=== PATIENT | male | born 1955 | race Caucasian/White ===

== ENCOUNTER 2019-12-10 07:55 | Day surgery (SDC) | payer MEDICARE ==
[2019-12-09 09:10] VITALS: BMI 29.2
--- NOTE | 2019-12-09 11:29 | HP ---
ADDENDUM: Alysha Aguilera is a 64-year-old male. The patient presents to the office today for his anal stenosis. He has had a long problem with constipation, having very small caliber stools. He is tired of taking the stool softeners and fiber, mineral oil, and tired of dealing with this problem. Plan is for exam under anesthesia, sphincterotomy, possible anoplasty. He is up to date on his colonoscopies. MEDICATIONS: 1. Aspirin. 2. Lisinopril. 3. Metformin. 4. Carvedilol. PAST MEDICAL HISTORY: Cervical spine fracture in June 2017; diverticulitis on October 07, 1984; coronary stents and pacemakers in december 2004; coronary artery bypass grafting in April 2007; pacemaker removal and new pacemaker in June 2015. The patient is followed by Dr. Feliciano Jefferson, who states the patient is stable for surgery. I talked to him last year. The patient denies any cardiac symptoms. Colonoscopy was performed by Dr. Rick Cardoso. PHYSICAL EXAMINATION: VITAL SIGNS: 130 pounds, 74 inches, 140/87, 69, . HEAD, EARS, EYES, NOSE, AND THROAT: Unremarkable. LUNGS: Clear to auscultation. ABDOMEN: Soft and nontender. RECTAL: Not repeated. ASSESSMENT: Anal stenosis. PLAN: Exam under anesthesia with possible sphincterotomy and anoplasty. Explained risks and benefits and he consented. Questions answered. Job ID: [id number]
[2019-12-10] MEDS ORDERED: Acetaminophen 500 MG TAB ONE (09:07)
[2019-12-10] MEDS ORDERED: Famotidine/PF 20 mg/2ml Vial ONE (09:12)
[2019-12-10] MEDS ORDERED: Fentanyl 100 MCG/2 ML VIAL ONE ×2 (09:12)
[2019-12-10] MEDS ORDERED: Sodium Chloride 0.9% 100 ML ONE (09:17)
[2019-12-10] MEDS ORDERED: Piperacillin/Tazobactam 3.375 GM VIAL ONE (09:17)
[2019-12-10] MEDS ORDERED: Ketorolac Tromethamine 30 MG/ML VIAL ONE (09:17)
[2019-12-10] MEDS ORDERED: Midazolam HCl 2 mg/2 ml Vial ONE (09:20)
[2019-12-10 09:28] LABS: #Eosinphils 0.1 thou/uL (0.0-0.7); #Lymphocytes 1.2 thou/uL (1.20-3.40); #Monocytes 0.4 thou/uL (0.11-0.59); %Eosinophils 1.8 % (0.0-10.0); %Lymphocytes 25.7 % (21.0-51.0); %Monocytes 9.1 % (0.0-10.0); %Neutrophils 62.5 % (42.0-75.0); Hemoglobin 15.9 g/dL (14.0-18.0); Mean Corpuscular HGB CONC 34.5 g/dL (32.0-36.0); Mean Corpuscular Hemoglobin 31.1 pg (27.0-31.0); Mean Corpuscular Volume 90.2 fL (78.0-98.0); Mean Platelet Volume 8.1 fL (7.4-10.4); Platelet Count 164 thou/uL (130-400); RBC Distribution Width 12.1 % (11.5-14.5); Red Blood Cell (RBC) Count 5.12 mill/uL (4.70-6.10); White Blood Cell (WBC) Count 4.8 thou/uL (4.8-10.8)
[2019-12-10 09:42] LABS: Anion Gap 13 mmol/L (10-20); BUN (Urea Nitrogen) 13 mg/dL (8.4-25.7); Calc. Creatinine Clearance 96 mL/min (70-130); Calcium 9.8 mg/dL (7.8-10.44); Carbon Dioxide 27 mmol/L (23-31); Chloride 103 mmol/L (98-107); Estimated GFR-MDRD 66; Glucose 158 mg/dL (80-115); Potassium 4.8 mmol/L (3.5-5.1); Sodium 138 mmol/L (136-145)
[2019-12-10] MEDS ORDERED: Lidocaine 2% Jelly 5 ML TUBE ONE (09:46)
[2019-12-10] MEDS ORDERED: Bupivacaine PF 0.5% 30 ML VIAL ONE (09:46)
[2019-12-10] MEDS ORDERED: Lidocaine 1% w/Epinephrine 1:100K 20 ML VIAL ONE (09:46)
[2019-12-10] MEDS ORDERED: Lidocaine 1% PF 5 ML VIAL ONE (09:47)
[2019-12-10] MEDS ORDERED: Ondansetron PF 4 MG/2 ML Vial ONE (09:47)
[2019-12-10] MEDS ORDERED: Metoclopramide HCl 10 MG/2 ML VIAL ONE (09:47)
[2019-12-10] MEDS ORDERED: PROPOFOL 200 MG/20 ML VIAL ONE (09:47)
[2019-12-10] MEDS ORDERED: Glycopyrrolate 0.2 MG/ML 5 ML SYRINGE ONE (09:47)
[2019-12-10] MEDS ORDERED: Rocuronium Bromide 10 MG/ML (10ML VIAL) ONE (09:47)
[2019-12-10] MEDS ORDERED: PHENYLEPHRINE-NS 100 MCG/ML 10 ML SYRINGE ONE (09:47)
[2019-12-10] MEDS ORDERED: SUGAMMADEX SODIUM 200 MG/2 ML VIAL ONE (11:16)
--- NOTE | 2019-12-10 11:39 | OP ---
DATE OF PROCEDURE: 12/10/2019 PREOPERATIVE DIAGNOSIS: Anal stenosis. POSTOPERATIVE DIAGNOSIS: Anal stenosis. PROCEDURES PERFORMED: 1. Exam under anesthesia. 2. Right lateral anoplasty with internal sphincterotomy. ANESTHESIA: General, local with 0.5% Marcaine 30 mL, mixed with 1% Xylocaine with epinephrine 20 mL, 15 mL mixture used. DESCRIPTION OF PROCEDURE: The patient was taken to the operating room where under general anesthesia in the dorsal lithotomy position, perianal area, buttocks, scrotum, and perineum prepared with Betadine and draped in routine fashion. The anus was very tight. The smallest anal retractor could barely fit. A small incision was made in the right lateral perianal and internal sphincterotomy was performed using cautery and overlying skin incised. Good hemostasis noted. Skin irrigated, closed transversely with continuous locking suture of 3-0 chromic. Anal stenosis was relieved. The patient tolerated the procedure well. Job ID: [id number]
--- NOTE | 2019-12-11 08:31 | EKG ---
Test Reason : PREOP Blood Pressure : / mmHG Vent. 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 Low DONOVAN ([id number]) on 12/11/2019 8:30:48 AM Referred By: SHADE Confirmed By:DR. Low DONOVAN
== END 2019-12-10 13:20 | disposition home or self-care (01) ==
LOC: SDC 07:55
PROVIDERS: ATTEND Specialist
PROC: 0D8R0ZZ Division of Anal Sphincter, Open Approach (ICD-10-PCS; principal; 2019-12-10)
DX: K62.4 Stenosis of anus and rectum (principal); K59.00 Constipation, unspecified; I10 Essential (primary) hypertension; I25.2 Old myocardial infarction; I25.10 Atherosclerotic heart disease of native coronary artery without angina pectoris; E11.9 Type 2 diabetes mellitus without complications; Z79.82 Long term (current) use of aspirin; Z79.84 Long term (current) use of oral hypoglycemic drugs; Z79.899 Other long term (current) drug therapy; Z88.5 Allergy status to narcotic agent; Z90.49 Acquired absence of other specified parts of digestive tract; Z95.1 Presence of aortocoronary bypass graft; Z95.5 Presence of coronary angioplasty implant and graft
CPT/HCPCS: 36415; 80048; 85025; 93005; 93010; J1885; J2001; J2250; J2405; J2543; J2704; J2765; J3010; J3490; S0020; S0028